=== PATIENT | male | born 1955 | race Caucasian/White ===

== ENCOUNTER 2016-10-21 10:02 | Emergency (ER) | payer OTHER ==
[~2016-10-21] VITALS: Ht 165.1 cm; Wt 95.5 kg
[2016-10-21 10:06] VITALS: Ht 165.1 cm; Wt 95.5 kg
--- NOTE | 2016-10-21 10:31 | ERD ---
ER Documentation Chief Complaint Date/Time DATE: 10/21/16 TIME: 10:28 Chief Complaint sent by PCP to R/O bloot clot in Left leg HPI This patient is a 61-year-old male who was sent here by his primary care doctor to rule out DVT in the left lower extremity. Patient has had 2 or 3 days of swelling in the left lower extremity as well as moderate pain behind the calf. He denies any cough or chest pain. He denies any trauma. He denies any recent travel. Denies any fever. He is ambulatory. Denies any numbness or tingling. ROS All systems reviewed and are negative except as per history of present illness. Allergies Allergies: Coded Allergies: No Known Allergy (Unverified , 10/21/16) FmHx Family History: No diabetes Physical Exam Vitals Vital Signs Date Time Temp Pulse Resp B/P Pulse Ox O2 Delivery O2 Flow Rate FiO2 10/21/16 10:06 98.2 75 18 142/75 97 Physical Exam INITIAL VITAL SIGNS: Reviewed by me GENERAL: Awake, alert and oriented x 4, well appearing, nontoxic, speaking in full sentences. No acute distress HEAD: Atraumatic RESPIRATORY: Clear to auscultation bilaterally. Symmetric chest wall rise. No wheezing or rales. No accessory muscle use. CV: Regular rate and rhythm. No murmurs, rubs, or gallops. : Deffered. EXTREMITIES: Left lower extremity is 1-2+ edema from the knee down when compared to the right, indurated behind the calf, no erythema, ecchymosis in the posterior medial ankle, sensation to light touch is intact, no warmth Procedures/MDM 61-year-old male has left lower extremity swelling. He is sent here to rule out DVT. He has mildly elevated blood pressure 142/75 otherwise his vital signs. He is not tachycardic. Venous duplex ultrasound of the left lower extremity was ordered. Results showed no sonographic evidence for deep venous thrombosis. Complex fluid collection in the subcutaneous soft tissues of the left calf, may represent a liquefied hematoma. However abscess or seroma are not excluded. I have a low suspicion for abscess as patient does not have fevers, he is not tachycardic, it is not warm or indurated and there are no signs of infection. Patient was given copy of the radiology report and CD with images so that he can follow with primary care. Patient counseled regarding my diagnostic impression and care plan. Prior to discharge all questions answered. Pt agrees with treatment plan and understands strict return precautions. Pt is instructed to follow up with primary care provider within 24-48 hours. Precautionary instructions provided including instructions to return to the ER if not improving or for any worsening or changing symptoms or concerns. Departure Diagnosis: Primary Impression: Lower extremity edema Condition: Stable DYANA CHRIS PA-C Oct 21, 2016 10:31
--- NOTE | 2016-10-21 11:17 | RADRPT ---
PROCEDURE: US Lower extremity Venous. CLINICAL INDICATION: Left leg edema, pain TECHNIQUE: Multiple sonographic images of the left lower extremity deep venous system was obtained utilizing grayscale, color-flow, compressive sonography and doppler imaging with augmentation. The images were reviewed on a PACS workstation. COMPARISON: None. FINDINGS: There is normal compressibility and flow within the left common femoral, femoral, posterior tibial, peroneal and popliteal veins. There is a 2.4 x 1.1 x 3.8 cm fluid collection with internal debris in the soft tissues of the left calf. RPTAT: AA IMPRESSION: No sonographic evidence for deep venous thrombosis. Complex fluid collection in the subcutaneous soft tissues of the left calf, may represent a liquefie d hematoma. However abscess or seroma are not excluded. Clinical correlation and follow-up is need ed. .Jordan Wall MD, MD Date Time Electronically viewed and signed by .Jordan Wall MD, on 10/21/2016 11:17 .S/
== END 2016-10-21 11:57 | disposition home or self-care (01) ==
LOC: FTE 10:02
DX: R60.0 Localized edema (principal)
CPT/HCPCS: 93971; Z7502